=== PATIENT | female | born 1990 | race Hispanic/Latino ===

== ENCOUNTER 2017-08-15 08:24 | Emergency (ER) | payer BC ==
[2017-08-15 09:04] LABS: APPEARANCE,URINE Cloudy (CLEAR); BILIRUBIN,URINE Negative (NEGATIVE); COLOR,URINE Dark Yellow (YELLOW); GLUCOSE, URINE (UA) Negative (NEGATIVE); KETONES,URINE >=160 mg/dL (NEGATIVE); LEUKOCYTE ESTERASE ,URINE Moderate (NEGATIVE); NITRATE,URINE Negative (NEGATIVE); OCCULT BLOOD,URINE Negative (NEGATIVE); PH,URINE 6.5 (5.0-8.0); PROTEIN,URINE Trace (NEGATIVE)
[2017-08-15 09:29] LABS: HCG,QUAL RESULT POSITIVE (NEGATIVE)
[2017-08-15 09:31] LABS: BASOPHILS % (AUTO) 0.1 % (0.0-5.0); EOSINOPHILS % (AUTO) 0.2 % (0.0-8.0); HEMATOCRIT 36.6 % (36-48); LYMPHOCYTES % (AUTO) 7.3 % (21.0-51.0); MEAN CORPUSCULAR HEMOGLOBIN 31.6 pg (27.0-33.0); MEAN CORPUSCULAR HGB CONC 35.5 g/dL (32.0-36.0); MONOCYTES % (AUTO) 5.4 % (3.0-13.0); PLATELET COUNT (AUTO) 135 K/uL (130-400); RED BLOOD CELL COUNT(AUTO) 4.11 MIL/uL (4.00-5.50); RED CELL DISTRIBUTION WIDTH 12.5 % (11.0-15.5); WHITE BLOOD COUNT (AUTO) 9.1 K/uL (4.8-10.8)
[2017-08-15 09:49] LABS: BACTERIA,URINE Moderate /HPF (None Seen); MUCUS,URINE Few LPF (None Seen)
[2017-08-15 09:50] LABS: RBC,URINE 0-1 /HPF (0-1)
[2017-08-15 11:01] LABS: APPEARANCE,URINE Clear (CLEAR); BILIRUBIN,URINE Negative (NEGATIVE); COLOR,URINE Yellow (YELLOW); GLUCOSE, URINE (UA) Negative (NEGATIVE); KETONES,URINE 15 mg/dL (NEGATIVE); LEUKOCYTE ESTERASE ,URINE Negative (NEGATIVE); NITRATE,URINE Negative (NEGATIVE); OCCULT BLOOD,URINE Negative (NEGATIVE); PROTEIN,URINE Negative (NEGATIVE); UROBILINOGEN,URINE 0.2 mg/dL (0.2-1.0)
[2017-08-15 11:45] LABS: BACTERIA,URINE Rare /HPF (None Seen); RBC,URINE None Seen /HPF (0-1); SQUAMOUS EPITHELIAL CELL,UR 0-2 /HPF (0-2); WBC,URINE None Seen /HPF (0-1)
== END 2017-08-15 11:29 | disposition home or self-care (01) ==
LOC: EDH 08:24
DX: O20.0 Threatened abortion (principal); Z3A.09 9 weeks gestation of pregnancy
CPT/HCPCS: 36415; 76801; 81001; 81025; 84702; 85025

== ENCOUNTER 2019-09-26 15:53 | Emergency (ER) | payer BC ==
[2019-09-26 16:26] LABS: APPEARANCE,URINE Clear (CLEAR); BILIRUBIN,URINE Negative (NEGATIVE); COLOR,URINE Yellow (YELLOW); GLUCOSE, URINE (UA) Negative (NEGATIVE); KETONES,URINE 15 mg/dL (NEGATIVE); LEUKOCYTE ESTERASE ,URINE Negative (NEGATIVE); NITRATE,URINE Negative (NEGATIVE); OCCULT BLOOD,URINE Negative (NEGATIVE); PROTEIN,URINE Negative (NEGATIVE)
[2019-09-26 16:54] LABS: BASOPHILS % (AUTO) 0.2 % (0.0-5.0); HEMATOCRIT 32.1 % (36-48); LYMPHOCYTES % (AUTO) 22.6 % (21.0-51.0); MEAN CORPUSCULAR HEMOGLOBIN 30.6 pg (27.0-33.0); MEAN CORPUSCULAR HGB CONC 34.3 g/dL (32.0-36.0); MEAN CORPUSCULAR VOLUME 89.2 fL (79-99); MONOCYTES % (AUTO) 6.5 % (3.0-13.0); NEUTROPHILS % (AUTO) 68.5 % (40.0-77.0); PLATELET COUNT (AUTO) 144 K/uL (130-400); RED CELL DISTRIBUTION WIDTH 12.8 % (11.0-15.5); WHITE BLOOD COUNT (AUTO) 6.4 K/uL (4.8-10.8)
[2019-09-26 17:04] LABS: CREATININE 0.5 mg/dL (0.5-1.5); POTASSIUM 3.5 mmol/L (3.5-5.1)
[2019-09-26 17:31] LABS: BILIRUBIN,TOTAL 0.2 mg/dL (0.2-1.0)
== END 2019-09-26 17:58 | disposition home or self-care (01) ==
LOC: EDH 15:53
DX: O20.0 Threatened abortion (principal); Z79.899 Other long term (current) drug therapy; Z3A.12 12 weeks gestation of pregnancy
CPT/HCPCS: 36415; 76801; 80053; 81003; 84702; 85025

== ENCOUNTER 2020-02-27 14:39 | Observation (INO) | payer BC ==
[~2020-02-27] VITALS: Ht 149.9 cm; Wt 84.8 kg
[2020-02-27] MEDS: LACTATED RINGERS 1000ML 1,000 ML IV SCH ×2 (15:26→16:02)
[2020-02-27] MEDS ORDERED: TERBUTALINE SULFATE VIAL 1MG/ML SQ SCH (15:45)
[2020-02-27] MEDS ORDERED: TERBUTALINE SULFATE VIAL 1MG/ML SQ ONE (16:04)
[2020-02-27 19:15] VITALS: BP 94/52
== END 2020-02-27 21:00 | disposition home or self-care (01) ==
LOC: EDH 14:39 → INTOOBSV 15:04 → LDH 15:04
PROVIDERS: ADMIT Obstetrics & Gynecology; ATTEND Obstetrics & Gynecology
DX: O42.913 Preterm premature rupture of membranes, unspecified as to length of time between rupture and onset of labor, third trimester (principal); O62.9 Abnormality of forces of labor, unspecified; Z3A.34 34 weeks gestation of pregnancy
CPT/HCPCS: 59025; 76815; 96372; 99283; G0378 ×5; J3105; J7120

== ENCOUNTER 2020-03-14 14:00 | Inpatient (IN) | payer BC ==
[~2020-03-14] VITALS: Ht 149.9 cm; Wt 87.1 kg
[2020-03-20 20:30] VITALS: BP 93/59
[2020-03-21] MEDS ORDERED: CALDOLOR 800MG+NS 250ML 250 ML IV PRN ×2 (05:30→09:45)
[2020-03-21] MEDS ORDERED: CEFAZOLIN SODIUM 1 GM VIAL IVP PRN (05:30)
[2020-03-21 06:24] LABS: HEMATOCRIT 37.4 % (36-48); MEAN CORPUSCULAR HEMOGLOBIN 30.9 pg (27.0-33.0); MEAN CORPUSCULAR HGB CONC 33.4 g/dL (32.0-36.0); MEAN CORPUSCULAR VOLUME 92.6 fL (79-99); RED BLOOD CELL COUNT(AUTO) 4.04 MIL/uL (4.00-5.50); RED CELL DISTRIBUTION WIDTH 14.2 % (11.0-15.5); WHITE BLOOD COUNT (AUTO) 6.6 K/uL (4.8-10.8)
[2020-03-21] MEDS ORDERED: TRANEXAMIC ACID 1000MG/10ML ONE (07:12)
[2020-03-21] MEDS ORDERED: OXYTOCIN 10 USP UNITS/ML ONE (07:12)
[2020-03-21] MEDS ORDERED: MISOPROSTOL 200 MCG TABLET ONE (07:12)
[2020-03-21] MEDS ORDERED: METHYLERGONOVINE MALEATE 0.2 MG/1 ML ML ONE ×2 (07:13→11:47)
[2020-03-21] MEDS ORDERED: CITRIC ACID/SODIUM CITRATE 30 ML UDCUP ONE (07:59)
[2020-03-21] MEDS ORDERED: FENTANYL CITRATE PF 50 MCG/1 ML 2ML VIAL ONE (08:10)
[2020-03-21] MEDS ORDERED: MORPHINE PF 100MG/10ML AMP IV ONE (08:10)
[2020-03-21] MEDS ORDERED: MEPERIDINE-PF 50 MG/ML SYG ONE (08:45)
[2020-03-21] MEDS ORDERED: ONDANSETRON 4MG INJ ONE (08:51)
[2020-03-21] MEDS ORDERED: PHENYLEPHRINE HCL 10 MG/ML 1ML VIAL IV ONE (09:09)
[2020-03-21] MEDS ORDERED: OXYTOCIN 10 UNIT/1ML 10ML VIAL ONE (09:09)
[2020-03-21] MEDS ORDERED: PROMETHAZINE HCL 25 MG/ML 1ML AMPULE IM PRN (09:30)
[2020-03-21] MEDS ORDERED: ACETAMINOPHEN 500 MG TABLET PO PRN (09:30)
[2020-03-21] MEDS ORDERED: 0.9%NACL 10ML VIAL IVP PRN (09:30)
[2020-03-21] MEDS ORDERED: MEPERIDINE-PF 75 MG/ML SYG IM PRN (09:30)
[2020-03-21] MEDS ORDERED: DIPHENHYDRAMINE HCL 25 MG CAPSULE PO PRN (09:30)
[2020-03-21] MEDS ORDERED: OXYTOCIN-LR 20 UNITS/1000 ML 1,000 ML IV PRN (09:30)
[2020-03-21] MEDS ORDERED: MEASLES/MUMPS/RUBELLA VACCINE, LIVE 0.5 ML/VIAL SQ SCH (09:30)
[2020-03-21] MEDS ORDERED: IBUPROFEN 600 MG TABLET PO PRN (09:30)
[2020-03-21] MEDS ORDERED: LANOLIN 30GM OINTMENT TP PRN (09:30)
[2020-03-21] MEDS ORDERED: KETOROLAC 30MG VIAL (30MG/ML) IV PRN (09:45)
[2020-03-21] MEDS ORDERED: LORATADINE 10 MG TABLET PO PRN (09:45)
[2020-03-21] MEDS ORDERED: ONDANSETRON 4MG INJ IVP PRN (09:45)
[2020-03-21] MEDS ORDERED: NALOXONE HCL 0.4 MG/1 ML ML IVP PRN ×3 (09:45)
[2020-03-21] MEDS ORDERED: DiphenhydrAMINE HCL 50 MG/ML VIAL IVP PRN (09:45)
[2020-03-21 09:55] LABS: RAPID PLASMA REAGIN NONREACTIVE (NONREACTIVE)
[2020-03-21] MEDS: OXYTOCIN-LR 20 UNITS/1000 ML 1,000 ML IV SCH (10:21)
[2020-03-21] MEDS ORDERED: METHYLERGONOVINE MALEATE 0.2 MG/1 ML ML IM SCH (11:45)
[2020-03-21 12:13] VITALS: BP 107/64
[2020-03-21] MEDS ORDERED: PREN1TAB80 PO (12:31)
[2020-03-21] MEDS: HYDROCODONE/ACETAMINOPHEN 5/325 MG TAB PO PRN ×2 (12:35→21:03)
[2020-03-21 16:17] VITALS: BP 94/61
[2020-03-21] MEDS: DEXTROSE 5 %-0.45 % NACL 1,000 ML IV PRN (17:38)
[2020-03-21] MEDS: CALDOLOR 800MG+NS 250ML 250 ML IV SCH (17:38)
[2020-03-21 20:30] VITALS: BP 93/59
[2020-03-21] MEDS: DOCUSATE SODIUM 100 MG CAP PO SCH (21:01)
[2020-03-21 23:50] VITALS: BP 90/56
[2020-03-22] VITALS (7 sets, daily range): BP systolic 85–101; BP diastolic 53–61
[2020-03-22] MEDS: DEXTROSE 5 %-0.45 % NACL 1,000 ML IV PRN (01:57)
[2020-03-22] MEDS: CALDOLOR 800MG+NS 250ML 250 ML IV SCH (02:07)
[2020-03-22] MEDS: HYDROCODONE/ACETAMINOPHEN 5/325 MG TAB PO PRN ×2 (02:38→09:21)
[2020-03-22] MEDS: BISACODYL 10 MG SUPP.RECT RC PRN ×2 (03:25→09:37)
[2020-03-22] MEDS: OXYTOCIN-LR 20 UNITS/1000 ML 1,000 ML IV SCH (07:15)
[2020-03-22 08:14] LABS: HEPATITIS Bs ANTIGEN SCREEN P Negative (Negative)
[2020-03-22] MEDS: SIMETHICONE 80 MG TAB.CHEW PO PRN ×4 (08:22→20:42)
[2020-03-22] MEDS: DOCUSATE SODIUM 100 MG CAP PO SCH ×2 (08:22→20:42)
[2020-03-22] MEDS: IBUPROFEN 800 MG TAB PO SCH ×3 (08:23→17:19)
[2020-03-22] MEDS: LIDOCAINE 5% TOPICAL PATCH TP SCH (09:21)
[2020-03-22] MEDS: DIPH,PERTUSS(ACELL),TET VAC/PF 0.5 ML VIAL IM SCH ×2 (09:30→20:20)
[2020-03-22] MEDS ORDERED: MAGNESIUM CITRATE 296 ML SOLUTION PO SCH (13:30)
[2020-03-22] MEDS: ACETAMINOPHEN WITH CODEINE 1 TAB TAB PO PRN (14:18)
[2020-03-22] MEDS: LACTATED RINGERS 1000ML 1,000 ML IV SCH ×2 (21:45→21:50)
[2020-03-23] MEDS: HYDROCODONE/ACETAMINOPHEN 5/325 MG TAB PO PRN (00:28)
[2020-03-23] MEDS: IBUPROFEN 800 MG TAB PO SCH ×2 (01:33→09:48)
[2020-03-23 03:07] VITALS: BP 112/54
[2020-03-23 07:21] VITALS: BP 103/67
[2020-03-23] MEDS: DOCUSATE SODIUM 100 MG CAP PO SCH (08:03)
[2020-03-23] MEDS: SIMETHICONE 80 MG TAB.CHEW PO PRN (08:03)
[2020-03-23] MEDS: ACETAMINOPHEN WITH CODEINE 1 TAB TAB PO PRN (08:04)
[2020-03-23] MEDS: LIDOCAINE 5% TOPICAL PATCH TP SCH (09:46)
[2020-03-23 12:29] VITALS: BP 95/58
== END 2020-03-23 13:25 | disposition home or self-care (01) | DRG 788 ==
LOC: LDH 03-21 05:04 → WSH 03-21 12:10
PROVIDERS: ADMIT Obstetrics & Gynecology; ATTEND Obstetrics & Gynecology
PROC: 10D00Z1 Extraction of Products of Conception, Low, Open Approach (ICD-10-PCS; principal; 2020-03-21 08:00)
DX: O69.81X0 Labor and delivery complicated by cord around neck, without compression, not applicable or unspecified (principal); Z37.0 Single live birth; Z3A.38 38 weeks gestation of pregnancy
CPT/HCPCS: 36415; 59510; 85027; 86592; 86701; 86850; 86900; 86901; 86923; 87340; 87390; A4344; G0378; J0690; J1741; J2175; J2210; J2274; J2370; J2405; J2590; J3010; J3490; J7120

== ENCOUNTER 2020-03-24 03:42 | Emergency (ER) | payer BC ==
[~2020-03-24 03:42] MED LIST: PREN1TAB80 PO
[2020-03-24] MEDS ORDERED: KETOROLAC TROMETHAMINE 60 MG/2 ML VIAL ONE (05:46)
== END 2020-03-24 06:48 | disposition home or self-care (01) ==
LOC: EDH 03:42
DX: O90.89 Other complications of the puerperium, not elsewhere classified (principal); M79.604 Pain in right leg; Z98.890 Other specified postprocedural states
CPT/HCPCS: 93971; 96372; 99284; J1885

== ENCOUNTER 2020-03-28 14:19 | Emergency (ER) | payer BC ==
[2020-03-28 15:30] LABS: BASOPHILS % (AUTO) 0.1 % (0.0-5.0); EOSINOPHILS % (AUTO) 1.4 % (0.0-8.0); LYMPHOCYTES % (AUTO) 20.6 % (21.0-51.0); MEAN CORPUSCULAR HEMOGLOBIN 30.2 pg (27.0-33.0); MEAN CORPUSCULAR HGB CONC 32.1 g/dL (32.0-36.0); MONOCYTES % (AUTO) 7.6 % (3.0-13.0); PLATELET COUNT (AUTO) 160 K/uL (130-400); RED BLOOD CELL COUNT(AUTO) 3.51 MIL/uL (4.00-5.50); RED CELL DISTRIBUTION WIDTH 13.6 % (11.0-15.5); WHITE BLOOD COUNT (AUTO) 7.1 K/uL (4.8-10.8)
[2020-03-28 15:40] LABS: CREATININE 0.8 mg/dL (0.5-1.5)
[2020-03-28 15:42] LABS: PROTHROMBIN TIME 10.9 SEC (9.6-11.6)
[2020-03-28 15:44] LABS: ALBUMIN 2.7 g/dL (3.5-5.0); BILIRUBIN,TOTAL 0.2 mg/dL (0.2-1.0); TOTAL PROTEIN, SERUM 6.7 g/dL (6.0-8.3)
[2020-03-28 16:05] LABS: B-TYPE NATRIURETIC PEPTIDE 93 pg/mL (0-100)
[2020-03-28] MEDS ORDERED: IOHEXOL-350 75 ML VIAL IV ONE (16:59)
== END 2020-03-28 17:57 | disposition home or self-care (01) ==
LOC: EDH 14:19
DX: B34.9 Viral infection, unspecified (principal); R06.02 Shortness of breath; Z20.822 Contact with and (suspected) exposure to COVID-19
CPT/HCPCS: 36415; 71045; 71275; 80053; 83880; 84484; 85025; 85378; 85610; 85730; 87426; 93005; 99285; Q9967

== ENCOUNTER 2020-10-04 05:56 | Emergency (ER) | payer BC ==
[~2020-10-04] VITALS: Ht 149.9 cm; Wt 77.1 kg
[2020-10-04 06:16] VITALS: BP 96/67
[2020-10-04] MEDS ORDERED: GUAFACSF5L PO (09:48)
[2020-10-04] MEDS ORDERED: DOXY-336 PO (09:48)
[2020-10-04] MEDS ORDERED: IVER3TAB PO (09:49)
[2020-10-04 09:58] VITALS: BP 106/65
== END 2020-10-04 10:08 | disposition home or self-care (01) ==
LOC: EDH 05:56
DX: U07.1 COVID-19 (principal); J06.9 Acute upper respiratory infection, unspecified; Z79.899 Other long term (current) drug therapy
CPT/HCPCS: 71045; 87426; 87804; 87880

== ENCOUNTER 2021-03-30 01:46 | Emergency (ER) | payer BC, OTHER ==
[~2021-03-30] VITALS: Ht 149.9 cm; Wt 69.4 kg
[~2021-03-30 01:46] MED LIST changes: +DOXY-336 PO; +GUAFACSF5L PO; +IVER3TAB PO
[2021-03-30] MEDS: PREDNISONE 20 MG TABLET PO ONE (02:43)
[2021-03-30] MEDS: 0.9%NACL 1000ML 1,000 ML IV ONE (02:43)
[2021-03-30 03:16] LABS: BASOPHILS % (AUTO) 0.3 % (0.0-5.0); EOSINOPHILS % (AUTO) 4.7 % (0.0-8.0); HEMATOCRIT 40.4 % (36-48); LYMPHOCYTES % (AUTO) 28.7 % (21.0-51.0); MEAN CORPUSCULAR HEMOGLOBIN 29.5 pg (27.0-33.0); MEAN CORPUSCULAR HGB CONC 32.4 g/dL (32.0-36.0); MONOCYTES % (AUTO) 9.7 % (3.0-13.0); NEUTROPHILS % (AUTO) 56.4 % (40.0-77.0); PLATELET COUNT (AUTO) 138 K/uL (130-400); RED BLOOD CELL COUNT(AUTO) 4.44 MIL/uL (4.00-5.50); RED CELL DISTRIBUTION WIDTH 12.9 % (11.0-15.5); WHITE BLOOD COUNT (AUTO) 6.2 K/uL (4.8-10.8)
[2021-03-30 03:25] LABS: CREATININE 0.6 mg/dL (0.5-1.5); POTASSIUM 3.7 mmol/L (3.5-5.1)
[2021-03-30 03:29] LABS: APPEARANCE,URINE Clear (CLEAR); BILIRUBIN,URINE Negative (NEGATIVE); COLOR,URINE Yellow (YELLOW); GLUCOSE, URINE (UA) Negative (NEGATIVE); KETONES,URINE Negative (NEGATIVE); LEUKOCYTE ESTERASE ,URINE Negative (NEGATIVE); NITRATE,URINE Negative (NEGATIVE); OCCULT BLOOD,URINE Negative (NEGATIVE); PH,URINE 6.5 (5.0-8.0); PROTEIN,URINE Negative (NEGATIVE); UROBILINOGEN,URINE 0.2 mg/dL (0.2-1.0)
[2021-03-30 03:31] LABS: HCG,QUAL RESULT NEGATIVE (NEGATIVE)
[2021-03-30 03:37] LABS: ALBUMIN 4.2 g/dL (3.5-5.0); BILIRUBIN,TOTAL 0.2 mg/dL (0.2-1.0); TOTAL PROTEIN, SERUM 8.2 g/dL (6.0-8.3)
[2021-03-30 03:46] VITALS: BP 101/59
[2021-03-30] MEDS ORDERED: PRED20TA3 PO (04:14)
[2021-03-30] MEDS ORDERED: CYCL-309 PO (04:14)
== END 2021-03-30 04:55 ==
LOC: EDH 01:46
DX: E86.9 Volume depletion, unspecified (principal); R06.00 Dyspnea, unspecified; R53.81 Other malaise; R53.83 Other fatigue; R94.6 Abnormal results of thyroid function studies; Z79.52 Long term (current) use of systemic steroids
CPT/HCPCS: 36415; 80053; 81003; 81025; 84443; 85025; 96360; 99283; J7030

== ENCOUNTER 2024-04-10 18:12 | Emergency (ER) | payer BC, OTHER ==
[~2024-04-10] VITALS: Ht 152.4 cm; Wt 73.5 kg
[~2024-04-10 18:12] MED LIST changes: +CYCL-309 PO; -DOXY-336 PO; +DOXY100C61 PO; +PRED20TA3 PO
[2024-04-10 18:45] LABS: RAPID GROUP A STREP negative (NEGATIVE)
[2024-04-10 18:55] LABS: COVID19 (SARS ANTIGEN RAPID) PRESUMPTIVE NEGATIVE (NEGATIVE); INFLUENZA TYPE A Negative For Type A (NEGATIVE)
[2024-04-10 18:57] LABS: INFLUENZA TYPE B Positive For Type B (NEGATIVE)
--- NOTE | 2024-04-10 19:16 | ERN ---
General Chief Complaint: Congestion Stated Complaint: COUGH Time Seen by MD: 18:14 Time Seen by Midlevel: 18:14 Source: patient History of Present Illness Initial Comments The patient is a 33-year-old female with no significant past medical history presenting to the emergency department with flu-like symptoms. Symptoms consist of generalized body weakness, cough, congestion, fever, and a persistent headache. She reports sick contacts at home. Patient states her entire family is sick with similar symptoms. She has been taking [id number] medication but if your symptoms have only been worsening. Allergies: Coded Allergies: No Known Drug Allergies (Unverified Allergy, Unknown, 09/26/19) Home Meds Active Scripts Cyclobenzaprine HCl (Cyclobenzaprine HCl) 10 Mg Tablet, 10 MG PO TIDP, #20 TAB 0 Refills Prov:ELSIE ATWOOD MD 03/30/21 Prednisone (Prednisone) 20 Mg Tablet, 40 MG PO DAILY for 4 Days, #8 TAB 0 Re fills Prov:ELSIE ATWOOD MD 03/30/21 Ivermectin (Ivermectin) 3 Mg Tablet, 3 MG PO TID, #20 TAB Prov:ABIGAIL DAVIS MD 10/04/20 Doxycycline Monohydrate (Doxycycline Monohydrate) 100 Mg Capsule, 1 CAP PO BID for 7 Days, #14 CAP 0 Refills Prov:ABIGAIL DAVIS MD 10/04/20 Guaifenesin/Codeine Phos (Robitussin with Codeine Syrp - Sugar Free) 5 Ml Syrp, 5 ML PO QID for cough, #150 ML Prov:ABIGAIL DAVIS MD 10/04/20 Reported Medications Vits W-Ca,Fe,FA(<1Mg) ( Vitamins) 1 Each Tablet, 1 EACH PO DAILY, TAB 03/21/20 Past Medical History Past Medical History: No Pertinent History Past Surgical History: None Social History Social History: Lives with family ROS Dictation CONSTITUTIONAL: NEGATIVE EXCEPT FOR HPI HEAD/FACE: NEGATIVE EXCEPT FOR HPI EENT: NEGATIVE EXCEPT FOR HPI RESPIRATORY: NEGATIVE EXCEPT FOR HPI GASTROINTESTINAL/ABDOMINAL: NEGATIVE EXCEPT FOR HPI GENITOURINARY: NEGATIVE EXCEPT FOR HPI MUSCULOSKELETAL: NEGATIVE EXCEPT FOR HPI INTEGUMENTARY: NEGATIVE EXCEPT FOR HPI NEUROLOGICAL/PSYCH: NEGATIVE EXCEPT FOR HPI HEMATOLOGIC/LYMPHATIC: NEGATIVE EXCEPT FOR HPI ALL SYSTEMS NEGATIVE, EXCEPT NOTED ABOVE. 13 POINT REVIEW OF SYSTEMS ASSESSED AND ALL NEGATIVE EXCEPT FOR ABOVE. Physical Exam Physical Exam Dictation Vital Signs reviewed General Appearance: Alert, oriented x 3, no acute distress, well developed, nourished. Head and Face: non-traumatic. Eyes: PERRL, pink conjunctivas, eyelid no trauma, anterior chamber with arcus senilis. Ears: Pinnas intact and no signs of trauma or erythema ear canals clear and no discharge TM no erythema Nose: No discharge, no bleeding. Oropharynx: Mouth normal, tongue pink, pharynx clear,no erythema, tonsils no exudates, no abscesses noted, mucous membrane moist Neck: Supple, non-tender, no thyromegaly, no masses, no JVD, no bruits Breast:Deferred Chest:No tenderness, no crepitus, no paradoxical movement, no retractions Lungs:Clear, well-ventilated, symmetric, no rales, no wheezing, no rhonchi, no stridor, good breath sounds bilaterally Heart: Regular rate, regular rhythm, no murmur, no gallops Vascular: no peripheral edema, Abdomen: Soft, positive bowel sounds, nondistended, no guarding, nontender, no rebound, no masses no hepatomegaly, no splenomegaly, no Reilly's sign, no hernias. Rectal: Deferred Genital: Deferred Neurological: Normal speech, motor function intact, sensory function intact Musculoskeletal: Neck nontender, full range of motion, back nontender, full range of motion, Extremities: nontender, full range of motion Skin: Color pink, dry, no turgor, no rash, no lacerations, no abrasions, no contusions. Lymphatic: Deferred Results Laboratory and Microbiology Lab and Micro Result Laboratory Tests Test 04/10/24 14:25 04/10/24 18:17 White Blood Count 2.7 K/uL (4.8-10.8) L Red Blood Count 4.72 MIL/uL (4.00-5.50) Hemoglobin 14.3 g/dL (12.0-16.0) Hematocrit 42.4 % (36-48) Mean Corpuscular Volume 89.8 fL (79-99) Mean Corpuscular Hemoglobin 30.3 pg (27.0-33.0) Mean Corpuscular Hemoglobin Concent 33.7 g/dL (32.0-36.0) Red Cell Distribution Width 12.1 % (11.0-15.5) Platelet Count 107 K/uL (130-400) L Mean Platelet Volume 12.2 fL (7.5-10.5) H Immature Granulocyte % (Auto) 0.0 % (0-1) Neutrophils (%) (Auto) 51.9 % (40.0-77.0) Lymphocytes (%) (Auto) 36.2 % (21.0-51.0) Monocytes (%) (Auto) 11.2 % (3.0-13.0) Eosinophils (%) (Auto) 0.7 % (0.0-8.0) Basophils (%) (Auto) 0.0 % (0.0-5.0) Neutrophils # (Auto) 1.4 K/uL (1.8-7.7) L Lymphocytes # (Auto) 1.0 K/uL (1.0-4.8) Monocytes # (Auto) 0.3 K/uL (0.1-1.0) Eosinophils # (Auto) 0.02 K/uL (0.00-0.70) Basophils # (Auto) 0.00 K/uL (0.00-0.20) Absolute Immature Granulocyte (auto 0.00 K/uL (0-1) Nucleated Red Blood Cells 0.0 % (0.0-0.19) Sodium Level 140 mmol/L (136-145) Potassium Level 3.6 mmol/L (3.5-5.1) Chloride Level 101 mmol/L (101-111) Carbon Dioxide Level 33 mmol/L (21-32) H Blood Urea Nitrogen 5 mg/dL (7-18) L Creatinine 0.7 mg/dL (0.5-1.0) Glomerular Filtration Rate Calc 117 mL/min (>90) Random Glucose 91 mg/dL (70-105) Total Calcium 8.9 mg/dL (8.5-10.1) Serum Test, Qualitative NEGATIVE (NEGATIVE) Influenza Type A Antigen Negative For Type A Influenza Type B Antigen Positive For Type B SARS-CoV-2 Antigen (Rapid) PRESUMPTIVE NEGATIVE Group A Streptococcus Rapid negative (NEGATIVE) Labs Reviewed?: Yes MDM MDM: Differential diagnosis: Viral syndrome, pneumonia, upper respiratory infection, dehydration There are no social concerns with this patient. Prescription drug management Prescriptions will include: Medrol pack, Tessalon Perles Medical management and examination interpretation discussions were had by me with other qualified healthcare professionals as indicated for the patient's care. ED Course Orders Procedure Category Date Status Time Covid19 (Sars Antigen LAB 04/10/24 Complete Rapid) 18:15 Influenza Type A & B, LAB 04/10/24 Complete Rapid 18:15 Rapid (Group A Strep) LAB 04/10/24 Complete 18:15 Cbc With Differential LAB 04/10/24 In Process 18:18 Basic Metabolic Panel LAB 04/10/24 Complete 18:18 Testing, LAB 04/10/24 Complete Serum Hcg 18:18 Chest 1vw RAD 04/10/24 Resulted 18:18 0.9%Nacl 1000ml (Ns PHA 04/10/24 Complete 1000ml) 18:30 Manual Differential LAB 04/10/24 In Process 14:25 Current Medications Medications (Trade) Dose Ordered Sig/Espinoza Route PRN Reason Start Time Stop Time Status Last Admin Dose Admin Sodium Chloride 1,000 ml @ 0 mls/hr ONCE ONCE IV 04/10/24 18:30 04/10/24 18:31 DC Vital Signs Date Time Temp Pulse Resp B/P (MAP) Pulse Ox O2 Delivery O2 Flow Rate FiO2 04/10/24 19:51 98.6 102 19 100/70 98 Room Air* 0 21 04/10/24 18:13 99.9 107 16 116/76 97 Room Air [place] [address] [address] IMAGING REPORT Signed PATIENT: JAIRO BEATTY MR#: [id number] : 1990 SEX: F AGE: 33 LOCATION: [facility] ORDER 18 STATUS: REG ER REPORT#: [id number] SERVICE 17 REASON: sob/cough/fever r/o pna ORDERING PHYSICIAN: NKECHI TOM PROCEDURE: CXR1VW - CHEST 1VW Exam Type: CHEST 1VW Clinical Information: sob/cough/fever r/o pna Comparison: None Findings: The lungs are clear of infiltrates. The heart is normal in size. The bony and soft tissue structures of the chest are unremarkable. Impression: Clear lungs. DICTATED BY: PEGGY TONEY MD DATE: 04/10/241958 ELECTRONICALLY SIGNED BY: PEGGY TONEY MD DATE: 04/10/242002 DX & DISP Disposition: Discharge Departure Impression: Primary Impression: Influenza B Condition: Stable Additional Instructions: You have tested positive for influenza B. I have given you a prescription for Tamiflu and steroids which should help improve your symptoms over the next couple of days. Your blood work is stable. Your electrolytes are normal. Your chest x-ray does not show any evidence of pneumonia. Please follow up with your primary care doctor in 2-3 days for repeat evaluation. If your symptoms do not improve over the next 24-48 hours please return to the ER for further evaluation. Referrals: SELF,REFERRAL (PCP) Time of Disposition: 20:26 I have reviewed the case, and I agree with, Diagnosis and Plan I performed the substantive portion of the visit. I have reviewed and personally made and approve the management plan that is documented in the note by myself or the TREVON. I acknowledge for responsibility for the patient's management plan. NKECHI TOM Apr 10, 2024 19:16
[2024-04-10 19:30] LABS: EOSINOPHILS # (AUTO) 0.02 K/uL (0.00-0.70); EOSINOPHILS % (AUTO) 0.7 % (0.0-8.0); HEMATOCRIT 42.4 % (36-48); LYMPHOCYTES % (AUTO) 36.2 % (21.0-51.0); MEAN CORPUSCULAR HEMOGLOBIN 30.3 pg (27.0-33.0); MEAN CORPUSCULAR HGB CONC 33.7 g/dL (32.0-36.0); MEAN CORPUSCULAR VOLUME 89.8 fL (79-99); MONOCYTES # (AUTO) 0.3 K/uL (0.1-1.0); MONOCYTES % (AUTO) 11.2 % (3.0-13.0); NEUTROPHILS # (AUTO) 1.4 K/uL (1.8-7.7); NEUTROPHILS % (AUTO) 51.9 % (40.0-77.0); PLATELET COUNT (AUTO) 107 K/uL (130-400); RED BLOOD CELL COUNT(AUTO) 4.72 MIL/uL (4.00-5.50); RED CELL DISTRIBUTION WIDTH 12.1 % (11.0-15.5); WHITE BLOOD COUNT (AUTO) 2.7 K/uL (4.8-10.8)
[2024-04-10 19:38] LABS: CREATININE 0.7 mg/dL (0.5-1.0); POTASSIUM 3.6 mmol/L (3.5-5.1)
[2024-04-10 19:51] VITALS: BP 100/70; PULSE 102; RESP 19; TEMP 98.6; O2SAT 98
--- NOTE | 2024-04-10 20:03 | HMCIMG ---
Exam Type: CHEST 1VW Clinical Information: sob/cough/fever r/o pna Comparison: None Findings: The lungs are clear of infiltrates. The heart is normal in size. The bony and soft tissue structures of the chest are unremarkable. Impression: Clear lungs.
[2024-04-10] MEDS ORDERED: METH4TAB3 PO (20:31)
[2024-04-10] MEDS ORDERED: OSEL75 PO (20:31)
[2024-04-10] MEDS: 0.9%NACL 1000ML 1,000 ML IV ONE (20:38)
[2024-04-10 20:43] LABS: BAND NEUTROPHILS % (MANUAL) 4 % (0-2); EOSINOPHILS % (MANUAL) 1 % (1-6); LYMPHOCYTES % (MANUAL) 47 % (22-44); MAN.DIFF COMMENT-IMPRESSION MANUAL DIFFERENTIAL; MONOCYTES % (MANUAL) 9 % (2-9); PLATELET MORPHOLOGY COMMENT ADEQUATE; SEGMENTED NEUTROPHILS % 39 % (40-70); TOTAL CELLS COUNTED 100; WBC MORPHOLOGY CONSISTENT W/DIFF
== END 2024-04-10 21:26 | disposition home or self-care (01) ==
LOC: EDH 18:12
DX: J10.1 Influenza due to other identified influenza virus with other respiratory manifestations (principal); Z79.52 Long term (current) use of systemic steroids; Z20.822 Contact with and (suspected) exposure to COVID-19
CPT/HCPCS: 99284; 71045; 87426; 80048; 84703; 85025; 87880; 87804 ×2; 36415; J7030